=== PATIENT | female | born 1970 | race Caucasian/White ===

== ENCOUNTER 2017-02-05 13:50 | Emergency (ER) | payer BC ==
[2017-02-05 14:07] VITALS: BP 115/65
[2017-02-05] MEDS ORDERED: Ketorolac 30 MG/ML SDV IM ONE (14:15)
[2017-02-05] MEDS ORDERED: Cyclobenzaprine 10 MG Tab PO ONE (14:16)
[2017-02-05] MEDS ORDERED: Acetaminophen/HYDROcodone 325-10 MG Tab PO ONE (14:17)
--- NOTE | 2017-02-05 14:32 | EDM.PDOC ---
Scribed by Una Domingo 02/05/17 1431 for Jerrell Yang MD ED HPI GENERAL MEDICAL PROBLEM - General Chief Complaint: Back Pain or Injury Stated Complaint: [id number] BACK PAIN Time Seen by Provider: 02/05/17 14:26 Source of Information: Reports: Patient, RN Notes Reviewed History Limitations: Reports: No Limitations - History of Present Illness INITIAL COMMENTS - FREE TEXT/NARRATIVE: Complaint of right low back pain onset yesterday when bent over in shower to shave her legs. Patient felt a pulling and indicates sharp pain at the right SI joint region. Shortly after getting out of the shower she developed muscle spasm from the mid-thoracic level to the sacrum and tingling pain radiating down the right leg to the knee. Denies loss of bowel or bladder control, saddle numbness or motor weakness. Location: Reports: Back Quality: Reports: Ache Severity: Severe Improves with: Reports: None Worsens with: Reports: None Associated Symptoms: Reports: No Other Symptoms Middle Back Pain Score (Numeric/FACES): 10 - Related Data Allergies Allergy/AdvReac Type Severity Reaction Status Date / Time No Known Allergies Allergy Verified 04/05/16 15:16 Home Meds: Home Meds Modafinil [Provigil] 300 mg PO DAILY PRN 12/22/15 [History] Nortriptyline 25 mg PO DAILY 02/05/17 [History] Oxybutynin 5 mg PO DAILY 02/05/17 [History] oxyCODONE HCl/Acetaminophen [Percocet 5-325 mg Tablet] 1 tab PO Q6H PRN [History] Past Medical History HEENT History: Reports: None Cardiovascular History: Reports: None Respiratory History: Reports: None Gastrointestinal History: Reports: Other (See Below) Other Gastrointestinal History: liver hemangioma Genitourinary History: Reports: None 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: Musculoskeletal History: Reports: Back Pain, Chronic, Osteoarthritis Other Musculoskeletal History: fibromyalgia Neurological History: Reports: None Psychiatric History: Reports: None Endocrine/Metabolic History: Reports: None Hematologic History: Reports: None Immunologic History: Reports: None Oncologic (Cancer) History: Reports: None Dermatologic History: Reports: None - Past Surgical History GI Surgical History: Reports: Appendectomy, Cholecystectomy, Hernia Repair/Other , Other (See Below) Female Surgical History: Reports: Hysterectomy, Tubal Ligation Social & Family History - Family History Family Medical History: Noncontributory - Tobacco Use Smoking Status *Q: Never Smoker Second Hand Smoke Exposure: Yes - Caffeine Use Caffeine Use: Reports: Coffee - Alcohol Use Days Per Week of Alcohol Use: 0 - Recreational Drug Use Recreational Drug Use: No - Living Situation & Occupation Living situation: Reports: , with Family ED ROS GENERAL - Review of Systems Review Of Systems: ROS reveals no pertinent complaints other than HPI. ED EXAM,LOWER BACK PAIN/INJURY - Physical Exam Exam: See Below Exam Limited By: No Limitations General Appearance: Alert, WD/WN, No Apparent Distress Head: Atraumatic, Normocephalic Neck: Normal Inspection, Supple, Non-Tender, Full Range of Motion Respiratory/Chest: No Respiratory Distress Back Exam: Other (paraspinal muscle spasms and tenderness mid T-spine to sacrum. Tender at right SI joint. ) Neurological: Alert, Normal Mood/Affect, Normal Dorsiflexion, CN II-XII Intact, Normal Plantar Flexion, Normal Gait, Normal Reflexes, No Motor/Sensory Deficits , Oriented x 3 Psychiatric: Normal Affect, Normal Mood Skin Exam: Warm, Dry, Intact, Normal Color, No Rash Course - Vital Signs Last Recorded V/S: Last Vital Signs Temp 36.8 C 02/05/17 14:04 Pulse 60 02/05/17 14:04 Resp 16 02/05/17 14:04 BP 115/65 02/05/17 14:04 Pulse Ox 100 02/05/17 14:04 - Orders/Labs/Meds Meds: Medications Discontinued Medications Generic Name Dose Route Start Last Admin Trade Name lAda PRN Reason Stop Dose Admin Hydrocodone Bitart/Acetaminophen 1 tab 02/05/17 14:17 02/05/17 14:24 [place] 325-10 Mg PO 02/05/17 14:18 1 tab ONETIME ONE Administration Cyclobenzaprine HCl 10 mg 02/05/17 14:16 02/05/17 14:25 Flexeril PO 02/05/17 14:17 10 mg ONETIME ONE Administration Ketorolac Tromethamine 60 mg 02/05/17 14:15 02/05/17 14:26 Toradol IM 02/05/17 14:16 60 mg ONETIME ONE Administration Departure - Departure Time of Disposition: 14:18 Disposition: Home, Self-Care 01 Condition: Good Clinical Impression: Low back strain, Lumbosacral radiculopathy - Discharge Information Instructions: Lumbosacral Strain, Lumbosacral Radiculopathy Forms: ED Department Discharge Additional Instructions: RX: Medrol Dose Pack. RX: Cyclobenzaprine 10mg. * Do not drive or work while under the influence of this medication. May continue to use your home Hydrocodone if needed. Alternate heat and ice packs to low back. Activity as tolerated. Follow up in clinic this week for recheck if needed. I have read and agree with the documentation that has been completed regarding this visit. By signing this record, I attest that the documentation was completed in my physical presence and is an accurate record of the encounter.
== END 2017-02-05 14:38 | disposition home or self-care (01) ==
LOC: DL.ED 13:50
DX: S39.012A Strain of muscle, fascia and tendon of lower back, initial encounter (principal); M54.17 Radiculopathy, lumbosacral region; Z79.899 Other long term (current) drug therapy; Z90.49 Acquired absence of other specified parts of digestive tract; X50.1XXA Overexertion from prolonged static or awkward postures, initial encounter
CPT/HCPCS: 96372; 99282; A9270; J1885

== ENCOUNTER 2017-03-01 11:21 | Emergency (ER) | payer BC ==
[2017-03-01 11:34] VITALS: BP 122/80
--- NOTE | 2017-03-01 11:39 | EDM.PDOC ---
ED HPI GENERAL MEDICAL PROBLEM - General Chief Complaint: Back Pain or Injury Stated Complaint: BACK PAIN. [phone] Time Seen by Provider: 03/01/17 11:37 Source of Information: Reports: Patient, Old Records, RN, RN Notes Reviewed History Limitations: Reports: No Limitations - History of Present Illness INITIAL COMMENTS - FREE TEXT/NARRATIVE: C/O onset of Rt low back pain yesterday when pt got up after sitting on the sofa. Denies any injury. The pain radiates down the Rt leg to the knee. Denies numbness, tingling, loss of bowel or bladder control. Pt reports nausea but denies vomiting. Pt states she had similar Sx's 1 month ago. She has an appointment with her PCP tomorrow, but cannot wait due to the pain. 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 Lower Back Pain Score (Numeric/FACES): 9 - Related Data Allergies Allergy/AdvReac Type Severity Reaction Status Date / Time No Known Allergies Allergy Verified 03/01/17 11:31 Home Meds: Home Meds Nortriptyline 25 mg PO DAILY 02/05/17 [History] Oxybutynin 5 mg PO DAILY 02/05/17 [History] Past Medical History HEENT History: Reports: None Cardiovascular History: Reports: None Respiratory History: Reports: None Gastrointestinal History: Reports: Other (See Below) Other Gastrointestinal History: liver hemangioma Genitourinary History: Reports: None 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: Musculoskeletal History: Reports: Back Pain, Chronic, Osteoarthritis, Other ( See Below) (chronic pain, opiate dependent) Other Musculoskeletal History: fibromyalgia Neurological History: Reports: None Psychiatric History: Reports: None Endocrine/Metabolic History: Reports: None Hematologic History: Reports: None Immunologic History: Reports: None Oncologic (Cancer) History: Reports: None Dermatologic History: Reports: None - Past Surgical History GI Surgical History: Reports: Appendectomy, Cholecystectomy, Hernia Repair/Other , Other (See Below) Female Surgical History: Reports: Hysterectomy, Tubal Ligation Social & Family History - Family History Family Medical History: Noncontributory - Tobacco Use Smoking Status *Q: Never Smoker Second Hand Smoke Exposure: No - Caffeine Use Caffeine Use: Reports: Coffee, Soda - Alcohol Use Days Per Week of Alcohol Use: 0 - Recreational Drug Use Recreational Drug Use: No - Living Situation & Occupation Living situation: Reports: , with Family ED ROS GENERAL - Review of Systems Review Of Systems: ROS reveals no pertinent complaints other than HPI. ED EXAM,LOWER BACK PAIN/INJURY - Physical Exam Exam: See Below Exam Limited By: No Limitations General Appearance: Alert, WD/WN, No Apparent Distress Throat/Mouth: Normal Inspection Head: Atraumatic, Normocephalic Neck: Normal Inspection Respiratory/Chest: No Respiratory Distress, Lungs Clear, Normal Breath Sounds, No Accessory Muscle Use, Chest Non-Tender Cardiovascular: Normal Peripheral Pulses, Regular Rate, Rhythm, No Edema GI/Abdominal: Normal Bowel Sounds, Soft, Non-Tender, No Distention (Female) Exam: Deferred Rectal (Female) Exam: Deferred Back Exam: Muscle Spasm, Paraspinal Tenderness (Rt lumbosacral). No: CVA Tenderness (R), Decreased Range of Motion, Vertebral Tenderness Extremities: Normal Inspection, Normal Range of Motion, Non-Tender, No Pedal Edema, Normal Capillary Refill Neurological: Alert, Normal Mood/Affect, Normal Dorsiflexion, CN II-XII Intact, Normal Plantar Flexion, Normal Gait, No Motor/Sensory Deficits, Oriented x 3 Psychiatric: Normal Affect, Normal Mood Skin Exam: Warm, Dry, Intact, Normal Color, No Rash Course - Vital Signs Last Recorded V/S: Last Vital Signs Temp 36.8 C 03/01/17 11:33 Pulse 70 03/01/17 11:33 Resp 18 03/01/17 11:33 BP 122/80 03/01/17 11:33 Pulse Ox 100 03/01/17 11:33 - Orders/Labs/Meds Labs: Laboratory Tests 03/01/17 03/01/17 03/01/17 Range/Units 11:24 11:24 11:24 Urine Color Yellow (YELLOW) Urine Appearance Slightly cloudy (CLEAR) Urine pH 6.0 (5.0-9.0) Ur Specific [place] 1.020 (1.005-1.030) Urine Protein Negative (NEGATIVE) Urine Glucose (UA) Negative (NEGATIVE) Urine Ketones Negative (NEGATIVE) Urine Occult Blood Trace-intact H (NEGATIVE) Urine Nitrite Negative (NEGATIVE) Urine Bilirubin Negative (NEGATIVE) Urine Urobilinogen 0.2 (0.2-1.0) mg/dL Ur Leukocyte Esterase Small H (NEGATIVE) Urine RBC 0-5 /HPF Urine WBC 5-10 H (0-5/HPF) /HPF Ur Epithelial Cells Many H /HPF Urine Bacteria Moderate H (0-FEW/HPF) /HPF Urine Mucus Few H /LPF Urine Other Urine HCG, Qual Negative Urine Opiates Screen Negative (NEGATIVE) Ur Oxycodone Screen Negative (NEGATIVE) Urine Methadone Screen Negative (NEGATIVE) Ur Barbiturates Screen Negative (NEGATIVE) U Tricyclic Antidepress Negative (NEGATIVE) Ur Phencyclidine Scrn Negative (NEGATIVE) Ur Amphetamine Screen Negative (NEGATIVE) U Methamphetamines Scrn Negative (NEGATIVE) Urine MDMA Screen Negative (NEGATIVE) U Benzodiazepines Scrn Negative (NEGATIVE) Urine Cocaine Screen Negative (NEGATIVE) U Marijuana (THC) Screen Negative (NEGATIVE) Meds: Medications Discontinued Medications Generic Name Dose Route Start Last Admin Trade Name Alda PRN Reason Stop Dose Admin Hydrocodone Bitart/Acetaminophen 1 tab 03/01/17 11:54 03/01/17 12:01 [place] 325-10 Mg PO 03/01/17 11:55 1 tab ONETIME ONE Administration Cyclobenzaprine HCl 10 mg 03/01/17 11:54 03/01/17 12:00 Flexeril PO 03/01/17 11:55 10 mg ONETIME ONE Administration Dexamethasone 8 mg 03/01/17 11:54 03/01/17 12:01 Dexamethasone IM 03/01/17 11:55 8 mg ONETIME ONE Administration Promethazine HCl 25 mg 03/01/17 12:00 03/01/17 12:04 Phenergan PO 03/01/17 12:01 25 mg ONETIME ONE Administration Departure - Departure Time of Disposition: 12:03 Disposition: Home, Self-Care 01 Condition: Good Clinical Impression: Acute exacerbation of chronic low back pain, Bacterial vaginosis Recurrent low back pain Qualifiers: Chronicity: acute Back pain laterality: right Sciatica presence: with sciatica Sciatica laterality: sciatica of right side Qualified Code(s): M54.41 - Lumbago with sciatica, right side - Discharge Information Instructions: Sciatica, Bacterial Vaginosis, [id number] Forms: ED Department Discharge Additional Instructions: Rx: Medrol Dose Matt Rx: Cyclobenzaprine 10mg Rx: Flagyl 500mg Rx: Zofran 4mg Activity as tolerated. Follow up in clinic with your doctor tomorrow as scheduled.
[2017-03-01] MEDS ORDERED: Acetaminophen/HYDROcodone 325-10 MG Tab PO ONE (11:54)
[2017-03-01] MEDS ORDERED: Cyclobenzaprine 10 MG Tab PO ONE (11:54)
[2017-03-01] MEDS ORDERED: Dexamethasone 4 MG/ML SDV IM ONE (11:54)
[2017-03-01] MEDS ORDERED: Promethazine 25 MG Tab PO ONE (12:00)
== END 2017-03-01 12:17 | disposition home or self-care (01) ==
LOC: DL.ED 11:21
DX: M54.41 Lumbago with sciatica, right side (principal); G89.29 Other chronic pain; N76.0 Acute vaginitis; M19.90 Unspecified osteoarthritis, unspecified site; Z79.899 Other long term (current) drug therapy; Z90.49 Acquired absence of other specified parts of digestive tract; Z90.710 Acquired absence of both cervix and uterus; Z98.51 Tubal ligation status; Z98.890 Other specified postprocedural states
CPT/HCPCS: 80305; 81001; 81025; 96372; 99283; A9270; J1100

== ENCOUNTER 2017-12-18 17:12 | Emergency (ER) | payer BC ==
--- NOTE | 2017-12-18 18:40 | EDM.PDOC ---
<Tyler Jackson M - Last Filed: 12/18/17 18:34> ED HPI GENERAL MEDICAL PROBLEM - General Chief Complaint: ENT Problem Stated Complaint: COLD SICK [id number] Time Seen by Provider: 12/18/17 18:25 Source of Information: Reports: Patient History Limitations: Reports: No Limitations - History of Present Illness INITIAL COMMENTS - FREE TEXT/NARRATIVE: This 47 yo female patient reports to the ED due to multiple problems. The patient reports she started to feel ill on Tuesday after spending the night at a hotel. The patient reports she started to have a sore throat, her neck started hurting (left side), she noticed a rash on the left side of her neck. The patient also reports that her Fitbit recorded that her heart rate was 113 on Tuesday. The patient has also had intermittent abdominal pain and aches in her back (kidney area). The patient reports she has a history of fibromyalgia. The patient reports there is a family history of cardiac problems. Onset Date: 12/17/17 Duration: Constant, Getting Worse Location: Reports: Head, Neck, Chest, Abdomen, Back Quality: Reports: Ache, Dull Severity: Moderate Improves with: Reports: None Worsens with: Reports: None Context: Reports: Other Associated Symptoms: Reports: Weakness (generalized) Generalized Pain Score (Numeric/FACES): 8 - Related Data Allergies Allergy/AdvReac Type Severity Reaction Status Date / Time No Known Allergies Allergy Verified 03/06/17 03:10 MDT Home Meds: Home Meds Cyclobenzaprine [Flexeril] 10 mg PO TID 03/06/17 [History] Methylprednisolone [IJD: Methylprednisolone] 4 mg PO BID 03/06/17 [History] Metronidazole [IJD: metroNIDAZOLE] 500 mg PO TID 03/06/17 [History] Ondansetron [Zofran ODT] 4 mg PO Q4H PRN #15 tab.dis 03/06/17 [Rx] Ondansetron [Zofran] 4 mg PO Q6H PRN 03/06/17 [History] Past Medical History HEENT History: Reports: None Cardiovascular History: Reports: None Respiratory History: Reports: None Gastrointestinal History: Reports: Other (See Below) Other Gastrointestinal History: liver hemangioma Genitourinary History: Reports: 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: Musculoskeletal History: Reports: Back Pain, Chronic, Osteoarthritis, Other ( See Below) Other Musculoskeletal History: fibromyalgia Neurological History: Reports: None Other Neuro History: herniated and bulging disc Psychiatric History: Reports: None Endocrine/Metabolic History: Reports: None Hematologic History: Reports: None Immunologic History: Reports: None Oncologic (Cancer) History: Reports: None Dermatologic History: Reports: None - Infectious Disease History Other Infectious Disease History: hepatitis - Past Surgical History GI Surgical History: Reports: Appendectomy, Cholecystectomy, Hernia Repair/Other , Other (See Below) Female Surgical History: Reports: Hysterectomy, Tubal Ligation Social & Family History - Family History Family Medical History: Noncontributory - Tobacco Use Smoking Status *Q: Never Smoker Second Hand Smoke Exposure: No - Caffeine Use Caffeine Use: Reports: Coffee - Recreational Drug Use Recreational Drug Use: No - Living Situation & Occupation Living situation: Reports: , with Family ED ROS GENERAL - Review of Systems Review Of Systems: ROS reveals no pertinent complaints other than HPI. ED EXAM, GENERAL - Physical Exam Exam: See Below Exam Limited By: No Limitations General Appearance: Alert, WD/WN, Moderate Distress Eye Exam: Bilateral Eye: EOMI, Normal Inspection, PERRL Ears: Normal External Exam, Normal Canal, Hearing Grossly Normal, Normal TMs ( TM retractions), Other Nose: Normal Inspection, Normal Mucosa, No Blood Throat/Mouth: Other (Posterior pharynx erythema (no pustules or exudate)) Head: Atraumatic, Normocephalic Neck: Lymphadenopathy (L), Tender Lateral (left) Respiratory/Chest: No Respiratory Distress, Lungs Clear, Normal Breath Sounds, No Accessory Muscle Use, Chest Non-Tender Cardiovascular: Normal Peripheral Pulses, Regular Rate, Rhythm, No Edema, No Gallop, No JVD, No Murmur, No Rub GI/Abdominal: Normal Bowel Sounds, Soft, Non-Tender, No Organomegaly, No Distention, No Abnormal Bruit, No Mass (Female) Exam: Deferred Rectal (Female) Exam: Deferred Back Exam: CVA Tenderness (L), CVA Tenderness (R), Other (generalized tenderness ) Extremities: Normal Inspection, Normal Range of Motion, Non-Tender, Normal Capillary Refill, No Pedal Edema Neurological: Alert, Oriented, CN II-XII Intact Psychiatric: Normal Affect, Normal Mood Skin Exam: Other (erythematous rash to the left side of her neck) Lymphatic: No Adenopathy EKG INTERPRETATION EKG Date: 12/18/17 Time: 18:36 Rhythm: NSR [place]: Normal P-Wave: Present QRS: Normal ST-T: Normal QT: Normal Course - Vital Signs Last Recorded V/S: Last Vital Signs Temp 38.2 C H 12/18/17 17:29 Pulse 82 12/18/17 17:29 Resp 16 12/18/17 17:29 BP 116/62 12/18/17 17:29 Pulse Ox 100 12/18/17 17:29 - Orders/Labs/Meds Orders: Active Orders 24 hr Category Date Time Status EKG Documentation Completion [RC] URGENT Care 12/18/17 18:40 Active CULTURE STREP A CONFIRMATION [] Stat Lab 12/18/17 19:39 Results STREP SCRN A RAPID W CULT CONF [RM] Stat Lab 12/18/17 19:39 Ordered UA W/MICROSCOPIC [URIN] Stat Lab 12/18/17 19:41 Ordered Labs: Laboratory Tests 12/18/17 12/18/17 12/18/17 Range/Units 18:50 18:50 18:50 WBC 13.1 H (5.0-10.0) 10^3/uL RBC 4.47 (4.2-5.4) 10^6/uL Hgb 13.0 (12.0-16.0) g/dL Hct 39.0 (37.0-47.0) % MCV 87.2 (80-100) fL MCH 29.1 (27.0-34.0) pg MCHC 33.3 (33.0-35.0) g/dL Plt Count 180 (150-450) 10^3/uL Neut % (Auto) 67.4 (42.2-75.2) % Lymph % (Auto) 20.6 (20.5-50.1) % [place] % (Auto) 10.0 H (2-8) % Eos % (Auto) 1.8 (1.0-3.0) % Baso % (Auto) 0.2 (0.0-1.0) % D-Dimer, Quantitative (0-400) ng/mL Sodium 136 (135-145) mmol/L Potassium 3.9 (3.6-5.0) mmol/L Chloride 100 L (101-111) mmol/L Carbon Dioxide 30.0 (21.0-31.0) mmol/L Anion Gap 9.9 BUN 15 (7-18) mg/dL Creatinine 1.0 (0.6-1.3) mg/dL Est Cr Clr Drug Dosing 57.53 mL/min Estimated GFR (MDRD) 59 BUN/Creatinine Ratio 15.00 Glucose 96 (74-105) mg/dL Calcium 9.1 (8.4-10.2) mg/dl Total Bilirubin 0.6 (0.2-1.0) mg/dL AST 21 (10-42) IU/L ALT 13 (10-60) IU/L Alkaline Phosphatase 49 (42-121) IU/L Troponin I < 0.02 (0.00-0.02) ng/ml Total Protein 7.4 (6.7-8.2) g/dl Albumin 4.1 (3.2-5.5) g/dl Globulin 3.3 Albumin/Globulin Ratio 1.24 Urine Color (YELLOW) Urine Appearance (CLEAR) Urine pH (5.0-9.0) Ur Specific [place] (1.005-1.030) Urine Protein (NEGATIVE) Urine Glucose (UA) (NEGATIVE) Urine Ketones (NEGATIVE) Urine Occult Blood (NEGATIVE) Urine Nitrite (NEGATIVE) Urine Bilirubin (NEGATIVE) Urine Urobilinogen (0.2-1.0) mg/dL Ur Leukocyte Esterase (NEGATIVE) Urine RBC /HPF Urine WBC (0-5/HPF) /HPF Ur Epithelial Cells /HPF Urine Bacteria (0-FEW/HPF) /HPF Monoscreen Negative 12/18/17 12/18/17 Range/Units 18:50 19:41 WBC (5.0-10.0) 10^3/uL RBC (4.2-5.4) 10^6/uL Hgb (12.0-16.0) g/dL Hct (37.0-47.0) % MCV (80-100) fL MCH (27.0-34.0) pg MCHC (33.0-35.0) g/dL Plt Count (150-450) 10^3/uL Neut % (Auto) (42.2-75.2) % Lymph % (Auto) (20.5-50.1) % [place] % (Auto) (2-8) % Eos % (Auto) (1.0-3.0) % Baso % (Auto) (0.0-1.0) % D-Dimer, Quantitative 113 (0-400) ng/mL Sodium (135-145) mmol/L Potassium (3.6-5.0) mmol/L Chloride (101-111) mmol/L Carbon Dioxide (21.0-31.0) mmol/L Anion Gap BUN (7-18) mg/dL Creatinine (0.6-1.3) mg/dL Est Cr Clr Drug Dosing mL/min Estimated GFR (MDRD) BUN/Creatinine Ratio Glucose (74-105) mg/dL Calcium (8.4-10.2) mg/dl Total Bilirubin (0.2-1.0) mg/dL AST (10-42) IU/L ALT (10-60) IU/L Alkaline Phosphatase (42-121) IU/L Troponin I (0.00-0.02) ng/ml Total Protein (6.7-8.2) g/dl Albumin (3.2-5.5) g/dl Globulin Albumin/Globulin Ratio Urine Color Yellow (YELLOW) Urine Appearance Slightly cloudy (CLEAR) Urine pH 7.0 (5.0-9.0) Ur Specific [place] 1.015 (1.005-1.030) Urine Protein Negative (NEGATIVE) Urine Glucose (UA) Negative (NEGATIVE) Urine Ketones Negative (NEGATIVE) Urine Occult Blood Trace-intact H (NEGATIVE) Urine Nitrite Negative (NEGATIVE) Urine Bilirubin Negative (NEGATIVE) Urine Urobilinogen 0.2 (0.2-1.0) mg/dL Ur Leukocyte Esterase Small H (NEGATIVE) Urine RBC 0-5 /HPF Urine WBC 5-10 H (0-5/HPF) /HPF Ur Epithelial Cells Moderate H /HPF Urine Bacteria Moderate H (0-FEW/HPF) /HPF Monoscreen Departure - Departure Disposition: Home, Self-Care 01 Clinical Impression: Tonsillitis - Discharge Information Instructions: Tonsillitis, [id number] Forms: ED Department Discharge Additional Instructions: 1) rest as much as possible 2) continue tylenol or motrin for fever and body aches 3) drink lots of lqiuids 4) try salt water gargle 5) avoid solid foods and scratchy foods 6) recheck if thee is any change or concern rx given; amoxil 250mg tid x 30 <Rony Burgos - Last Filed: 12/18/17 20:44> Course - Re-Assessments/Exams Free Text/Narrative Re-Assessment/Exam: 12/18/17 20:42 results discussed with pt. Departure - Departure Time of Disposition: 20:42 Condition: Good
[2017-12-18 19:17] LABS: CHLORIDE,CL 100 mmol/L (101-111); SODIUM,NA 136 mmol/L (135-145)
[2017-12-18] MEDS ORDERED: Amoxicillin 500 MG Cap PO ONE (20:41)
[2017-12-18] MEDS ORDERED: Acetaminophen/HYDROcodone 325-10 MG Tab PO ONE (20:41)
[2017-12-18 21:04] VITALS: BP 117/67
--- NOTE | 2017-12-20 07:44 | EKG ---
12/18/2017- RAI CASTILLO - FINDINGS: EKG per my reading, shows sinus rhythm at the rate of 76. [facility] /[id number]
== END 2017-12-18 21:02 | disposition home or self-care (01) ==
LOC: DL.ED 17:12
DX: J03.90 Acute tonsillitis, unspecified (principal); Z79.899 Other long term (current) drug therapy
CPT/HCPCS: 36415; 71046; 80053; 81001; 84484; 85025; 85379; 86308; 87081; 87430; 93005; 99284; A9270

== ENCOUNTER 2018-02-03 10:34 | Emergency (ER) | payer BC ==
--- NOTE | 2018-02-03 11:45 | EDM.PDOC ---
ED HPI GENERAL MEDICAL PROBLEM - General Chief Complaint: Gastrointestinal Problem Stated Complaint: SICK, BOTH ENDS ALL NIGHT Time Seen by Provider: 02/03/18 11:45 Source of Information: Reports: Patient, Old Records, RN, RN Notes Reviewed History Limitations: Reports: No Limitations - History of Present Illness INITIAL COMMENTS - FREE TEXT/NARRATIVE: Pt presents from home by POV with c/o onset of generalized abdominal cramping and diarrhea last night at about 2100HRS. Shortly after the Sx's began pt became nauseated, and began vomiting. She also developed Rt flank pain and suprapubic pain. She denies fevers. Admits to some chills, feeling "dehydrated" , and fatigued. She denies any known sick contacts. Last week she traveled to [place], [place] but has felt well since returning home up until last night. 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) Generalized Pain Score (Numeric/FACES): 10 - Related Data Allergies Allergy/AdvReac Type Severity Reaction Status Date / Time No Known Allergies Allergy Verified 02/03/18 11:23 Home Meds: Home Meds Cyclobenzaprine [Flexeril] 10 mg PO TID 03/06/17 [History] Ondansetron [Zofran] 4 mg PO Q6H PRN 03/06/17 [History] Past Medical History HEENT History: Reports: None Cardiovascular History: Reports: None Respiratory History: Reports: None Gastrointestinal History: Reports: Other (See Below) Other Gastrointestinal History: liver hemangioma Genitourinary History: Reports: None 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: Musculoskeletal History: Reports: Back Pain, Chronic, Osteoarthritis, Other ( See Below) Other Musculoskeletal History: fibromyalgia Neurological History: Reports: None Other Neuro History: herniated and bulging disc Psychiatric History: Reports: None Endocrine/Metabolic History: Reports: None Hematologic History: Reports: None Immunologic History: Reports: None Oncologic (Cancer) History: Reports: None Dermatologic History: Reports: None - Infectious Disease History Infectious Disease History: Reports: Chicken Pox Other Infectious Disease History: hepatitis - Past Surgical History Head Surgeries/Procedures: Reports: None GI Surgical History: Reports: Appendectomy, Cholecystectomy, Hernia Repair/Other , Other (See Below) Female Surgical History: Reports: Hysterectomy, Tubal Ligation Social & Family History - Family History Family Medical History: Noncontributory - Tobacco Use Smoking Status *Q: Never Smoker Second Hand Smoke Exposure: No - Caffeine Use Caffeine Use: Reports: Coffee - Recreational Drug Use Recreational Drug Use: No - Living Situation & Occupation Living situation: Reports: , with Family ED ROS GENERAL - Review of Systems Review Of Systems: ROS reveals no pertinent complaints other than HPI. ED EXAM, GI/ABD - Physical Exam Exam: See Below Exam Limited By: No Limitations General Appearance: Alert, WD/WN, No Apparent Distress, Other (uncomfortable, but non-toxic appearing) Eyes: Bilateral: Normal Appearance (no scleral icterus) Ears: Normal External Exam Nose: Normal Inspection, Normal Mucosa, No Blood Throat/Mouth: Normal Inspection, Normal Lips, Normal Teeth, Normal Gums, Normal Oropharynx, Normal Voice, No Airway Compromise, Other (dry oral membranes) Head: Atraumatic, Normocephalic Neck: Normal Inspection, Supple, Non-Tender, Full Range of Motion Respiratory/Chest: No Respiratory Distress, Lungs Clear, Normal Breath Sounds, No Accessory Muscle Use, Chest Non-Tender Cardiovascular: Regular Rate, Rhythm, No Edema GI/Abdominal Exam: Normal Bowel Sounds, Soft, No Distention, No Abnormal Bruit, Tender (generalized). No: Guarding, Rigid, Rebound (Female) Exam: Deferred Rectal (Female) Exam: Deferred Back Exam: CVA Tenderness (R), Paraspinal Tenderness (lumbar). No: CVA Tenderness (L), Vertebral Tenderness Extremities: Normal Inspection, Normal Range of Motion, Non-Tender, Normal Capillary Refill, No Pedal Edema Neurological: Alert, Oriented, CN II-XII Intact, Normal Cognition, No Motor/ Sensory Deficits Psychiatric: Depressed Mood, Flat Affect Skin Exam: Warm, Dry, Intact, Normal Color, No Rash Course - Orders/Labs/Meds Orders: Active Orders 24 hr Category Date Time Status Blood Glucose Check, Bedside [RC] ONETIME Care 02/03/18 11:51 Active Peripheral IV Care [RC] . DIRECTED Care 02/03/18 11:51 Active AMYLASE [CHEM] Stat Lab 02/03/18 12:01 Received COMPREHENSIVE METABOLIC PN,CMP [CHEM] Stat Lab 02/03/18 12:01 Received LACTIC ACID [CHEM] Stat Lab 02/03/18 12:01 Received LIPASE [CHEM] Stat Lab 02/03/18 12:01 Received UA W/MICROSCOPIC [URIN] Stat Lab 02/03/18 11:50 Ordered Sodium Chloride 0.9% [Saline Flush] Med 02/03/18 11:50 Active 10 ml FLUSH ASDIRECTED PRN Peripheral IV Insertion Adult [OM.PC] Stat Oth 02/03/18 11:50 Ordered Medication Orders Sodium Chloride (Saline Flush) 10 ml FLUSH ASDIRECTED PRN PRN Reason: Keep Vein Open Last Admin: 02/03/18 11:59 Dose: 10 ml Labs: Laboratory Tests 02/03/18 02/03/18 02/03/18 Range/Units 11:50 12:01 12:04 WBC 8.2 (5.0-10.0) 10^3/uL RBC 4.46 (4.2-5.4) 10^6/uL Hgb 13.0 (12.0-16.0) g/dL Hct 39.3 (37.0-47.0) % MCV 88.1 (80-100) fL MCH 29.1 (27.0-34.0) pg MCHC 33.1 (33.0-35.0) g/dL Plt Count 180 (150-450) 10^3/uL Neut % (Auto) 82.8 H (42.2-75.2) % Lymph % (Auto) 8.9 L (20.5-50.1) % [place] % (Auto) 8.1 H (2-8) % Eos % (Auto) 0.1 L (1.0-3.0) % Baso % (Auto) 0.1 (0.0-1.0) % POC Glucose 96 (70-105) mg/dl Urine Color Straw (YELLOW) Urine Appearance Slightly cloudy (CLEAR) Urine pH 6.0 (5.0-9.0) Ur Specific [place] 1.020 (1.005-1.030) Urine Protein Negative (NEGATIVE) Urine Glucose (UA) Negative (NEGATIVE) Urine Ketones Trace H (NEGATIVE) Urine Occult Blood Small H (NEGATIVE) Urine Nitrite Negative (NEGATIVE) Urine Bilirubin Negative (NEGATIVE) Urine Urobilinogen 0.2 (0.2-1.0) mg/dL Ur Leukocyte Esterase Negative (NEGATIVE) Urine RBC 5-10 H /HPF Urine WBC 0-5 (0-5/HPF) /HPF Ur Epithelial Cells Moderate H /HPF Urine Bacteria Moderate H (0-FEW/HPF) /HPF Urine Mucus Few H /LPF Meds: Medications Generic Name Dose Route Start Last Admin Trade Name Freq PRN Reason Stop Dose Admin Sodium Chloride 10 ml 02/03/18 11:50 02/03/18 11:59 Saline Flush FLUSH 10 ml ASDIRECTED PRN Administration Keep Vein Open Discontinued Medications Generic Name Dose Route Start Last Admin Trade Name Freq PRN Reason Stop Dose Admin Hydromorphone HCl 1 mg 02/03/18 11:52 02/03/18 12:08 Dilaudid IVPUSH 02/03/18 11:53 1 mg ONETIME ONE Administration Sodium Chloride 1,000 mls @ 999 mls/hr 02/03/18 11:51 02/03/18 12:06 Normal Saline IV 02/03/18 12:51 999 mls/hr .BOLUS ONE Administration Ondansetron HCl 4 mg 02/03/18 11:51 02/03/18 12:03 Zofran IV 02/03/18 11:52 4 mg ONETIME ONE Administration - Radiology Interpretation Free Text/Narrative:: CT Abd/Pelvis: no acute findings, see Rad. report for incidental and chronic findings. Departure - Departure Time of Disposition: 13:17 Disposition: Home, Self-Care 01 Condition: Good Clinical Impression: Vomiting, Diarrhea, Abdominal pain, Bacterial vaginosis, Acute exacerbation of chronic low back pain - Discharge Information Instructions: Viral Gastroenteritis, Adult, [id number], Bacterial Vaginosis, [id number] Forms: ED Department Discharge Additional Instructions: Rx: Zofran 4mg Rx: Bentyl 20mg Rx: Flagyl 500mg Clear liquid diet until nausea and vomiting resolve, then advance to soft bland diet as tolerated. Follow up in clinic in 4 to 5 days for recheck. - My Orders Last 24 Hours: My Active Orders 02/03/18 11:50 UA W/MICROSCOPIC [URIN] Stat Sodium Chloride 0.9% [Saline Flush] 10 ml FLUSH ASDIRECTED PRN Peripheral IV Insertion Adult [OM.PC] Stat 02/03/18 11:51 Blood Glucose Check, Bedside [RC] ONETIME Peripheral IV Care [RC] . DIRECTED 02/03/18 12:01 AMYLASE [CHEM] Stat COMPREHENSIVE METABOLIC PN,CMP [CHEM] Stat LACTIC ACID [CHEM] Stat LIPASE [CHEM] Stat - Assessment/Plan Last 24 Hours: My Active Orders 02/03/18 11:50 UA W/MICROSCOPIC [URIN] Stat Sodium Chloride 0.9% [Saline Flush] 10 ml FLUSH ASDIRECTED PRN Peripheral IV Insertion Adult [OM.PC] Stat 02/03/18 11:51 Blood Glucose Check, Bedside [RC] ONETIME Peripheral IV Care [RC] . DIRECTED 02/03/18 12:01 AMYLASE [CHEM] Stat COMPREHENSIVE METABOLIC PN,CMP [CHEM] Stat LACTIC ACID [CHEM] Stat LIPASE [CHEM] Stat
[2018-02-03] MEDS ORDERED: Sodium Chloride 0.9% 10 ML Syringe FLUSH PRN (11:50)
[2018-02-03] MEDS ORDERED: Ondansetron 4 MG/2 ML SDV IV ONE (11:51)
[2018-02-03] MEDS ORDERED: Sodium Chloride 0.9% 1,000 ML IV ONE (11:51)
[2018-02-03] MEDS ORDERED: HYDROmorphone 0.5 MG/0.5 ML Syringe IVPUSH ONE (11:52)
--- NOTE | 2018-02-03 13:11 | CT ---
Clinical history: 47-year-old 170 pound female with fever, chills, right flank pain and some hematuri a who significantly is had previous partial hepatectomy for hemangioma liver, cholecystectomy, append ectomy and hysterectomy. Scan technique: Volume acquisition of data emergency unenhanced CT scan of the abdomen and pelvis obt ained while the patient was lying supine on the Siemens multi slice scanner [place], [place]. All data archived in the PACS system for storage, reformatting axial/sagittal /coronal planes and study. Interpretation: 1. Large defect right lobe of the liver with marginal and adjacent surgical clips (partial hepatectom y and cholecystectomy). 2. Unenhanced liver, stomach, spleen, and left adrenal gland unremarkable (right adrenal not identifi ed). 3. No sign of renal cortical inflammation, cystic/solid mass lesion, nephrolithiasis or obstructive u ropathy either kidney. Normal bladder. Isolated punctate phlebolith-like calcification left side of t he pelvis. 4. A few small diverticula scattered in the sigmoid colon without current signs of associated inflamm ation. 5. No abdominal or pelvic mass lesion, inflammatory "dirty" peritoneal fat, mesenteric/retroperitonea l lymphadenopathy, signs of mechanical bowel obstruction, ascites or free intraperitoneal air. 6. Normal caliber aorta. Lumbar spine unremarkable. Lung bases clear. CONCLUSION: Multiple surgeries. No sign of acute intra or retroperitoneal abnormality. Sigmoid divert iculosis.
[2018-02-03 13:32] LABS: SODIUM,NA 136 mmol/L (135-145)
== END 2018-02-03 13:32 | disposition home or self-care (01) ==
LOC: DL.ED 10:34
DX: N76.0 Acute vaginitis (principal); M54.5 Low back pain; G89.29 Other chronic pain; Z79.899 Other long term (current) drug therapy
CPT/HCPCS: 36415; 74176; 80053; 81001; 82150; 82962; 83605; 83690; 85025; 96361; 96374; 96375; 99284; J1170; J2405; J7030; J7050

== ENCOUNTER 2018-10-08 14:39 | Emergency (ER) | payer BC ==
[2018-10-08 14:45] VITALS: BP 105/64
[2018-10-08] MEDS ORDERED: Sodium Chloride 0.9% 1,000 ML IV ONE (15:22)
[2018-10-08] MEDS ORDERED: Ketorolac 30 MG/ML SDV IVPUSH ONE (15:22)
--- NOTE | 2018-10-08 15:25 | EDM.PDOC ---
ED HPI GENERAL MEDICAL PROBLEM - General Chief Complaint: General Stated Complaint: SICK [id number] Time Seen by Provider: 10/08/18 15:23 Source of Information: Reports: Patient History Limitations: Reports: No Limitations - History of Present Illness INITIAL COMMENTS - FREE TEXT/NARRATIVE: onset left back pain yesterday then been going down to lower back and now lower abd hurts. had hysterectomy. 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: Musculoskeletal History: Reports: Back Pain, Chronic, Osteoarthritis, Other ( See Below) Other Musculoskeletal History: fibromyalgia Neurological History: Reports: None Other Neuro History: herniated and bulging disc Psychiatric History: Reports: None Endocrine/Metabolic History: Reports: None Hematologic History: Reports: None Immunologic History: Reports: None Oncologic (Cancer) History: Reports: None Dermatologic History: Reports: None - Infectious Disease History Infectious Disease History: Reports: Chicken Pox Other Infectious Disease History: hepatitis - Past Surgical History Head Surgeries/Procedures: Reports: None GI Surgical History: Reports: Appendectomy, Cholecystectomy, Hernia Repair/Other , Other (See Below) Female Surgical History: Reports: Hysterectomy, Tubal Ligation Social & Family History - Family History Family Medical History: Noncontributory - Tobacco Use Smoking Status *Q: Never Smoker Second Hand Smoke Exposure: No - Caffeine Use Caffeine Use: Reports: Coffee - Recreational Drug Use Recreational Drug Use: No - Living Situation & Occupation Living situation: Reports: , with Family ED ROS GENERAL - Review of Systems Review Of Systems: ROS reveals no pertinent complaints other than HPI. ED EXAM, GENERAL - Physical Exam Exam: See Below Exam Limited By: No Limitations General Appearance: Alert, WD/WN, Mild Distress, Other (general discomfort) Ears: Hearing Grossly Normal Throat/Mouth: Normal Voice, No Airway Compromise Head: Atraumatic Neck: Non-Tender, Full Range of Motion Respiratory/Chest: No Respiratory Distress Cardiovascular: Regular Rate, Rhythm GI/Abdominal: Tender, Other (suprapub & epiG region). No: Distended, Guarding, Rigid, Rebound Back Exam: CVA Tenderness (L) Neurological: Alert, Oriented, Normal Cognition, Normal Gait, No Motor/Sensory Deficits Psychiatric: Flat Affect, Tearful Skin Exam: Warm, Dry, Normal Color Lymphatic: No Adenopathy Course - Vital Signs Last Recorded V/S: Last Vital Signs Temp 36.4 C 10/08/18 14:42 Pulse 82 10/08/18 14:42 Resp 18 10/08/18 14:42 BP 105/64 10/08/18 14:42 Pulse Ox 100 10/08/18 14:42 - Orders/Labs/Meds Orders: Active Orders 24 hr Category Date Time Status Abdomen Pelvis wo Cont [CT] Urgent Exams 10/08/18 15:25 Taken CULTURE STREP A CONFIRMATION [] Stat Lab 10/08/18 14:52 Results STREP SCRN A RAPID W CULT CONF [] Stat Lab 10/08/18 14:52 Results Labs: Laboratory Tests 10/08/18 10/08/18 10/08/18 Range/Units 14:52 15:34 15:34 WBC 12.6 H (5.0-10.0) 10^3/uL RBC 4.93 (4.2-5.4) 10^6/uL Hgb 14.4 (12.0-16.0) g/dL Hct 43.1 (37.0-47.0) % MCV 87.4 (80-100) fL MCH 29.2 (27.0-34.0) pg MCHC 33.4 (33.0-35.0) g/dL Plt Count 184 (150-450) 10^3/uL Neut % (Auto) 71.6 (42.2-75.2) % Lymph % (Auto) 18.6 L (20.5-50.1) % [place] % (Auto) 9.0 H (2-8) % Eos % (Auto) 0.7 L (1.0-3.0) % Baso % (Auto) 0.1 (0.0-1.0) % Sodium 136 (135-145) mmol/L Potassium 3.4 L (3.6-5.0) mmol/L Chloride 102 (101-111) mmol/L Carbon Dioxide 23.0 (21.0-31.0) mmol/L Anion Gap 14.4 BUN 18 (7-18) mg/dL Creatinine 1.1 (0.6-1.3) mg/dL Est Cr Clr Drug Dosing 54.01 mL/min Estimated GFR (MDRD) 53 BUN/Creatinine Ratio 16.36 Glucose 95 (74-105) mg/dL Calcium 9.0 (8.4-10.2) mg/dl Total Bilirubin 1.2 H (0.2-1.0) mg/dL AST 20 (10-42) IU/L ALT 13 (10-60) IU/L Alkaline Phosphatase 54 (42-121) IU/L Total Protein 7.7 (6.7-8.2) g/dl Albumin 4.1 (3.2-5.5) g/dl Globulin 3.6 Albumin/Globulin Ratio 1.14 Urine Color Dark yellow (YELLOW) Urine Appearance Slightly cloudy (CLEAR) Urine pH 5.5 (5.0-9.0) Ur Specific [place] >= 1.030 (1.005-1.030) Urine Protein 30 H (NEGATIVE) Urine Glucose (UA) Negative (NEGATIVE) Urine Ketones Trace H (NEGATIVE) Urine Occult Blood Moderate H (NEGATIVE) Urine Nitrite Negative (NEGATIVE) Urine Bilirubin Small H (NEGATIVE) Urine Urobilinogen 0.2 (0.2-1.0) mg/dL Ur Leukocyte Esterase Negative (NEGATIVE) Urine RBC 20-30 H /HPF Urine WBC 0-5 (0-5/HPF) /HPF Ur Epithelial Cells Few /HPF Amorphous Sediment Few (0/HPF) /HPF Urine Bacteria Few (0-FEW/HPF) /HPF Fine Granular Casts Rare H (0/LPF) /LPF Urine Mucus Moderate H /LPF Meds: Medications Discontinued Medications Generic Name Dose Route Start Last Admin Trade Name Freq PRN Reason Stop Dose Admin Sodium Chloride 1,000 mls @ 999 mls/hr 10/08/18 15:22 10/08/18 15:36 Normal Saline IV 10/08/18 16:22 999 mls/hr .BOLUS ONE Administration Ketorolac Tromethamine 15 mg 10/08/18 15:22 03/10/19 15:36 Toradol IVPUSH 10/08/18 15:23 15 mg ONETIME ONE Administration - Re-Assessments/Exams Free Text/Narrative Re-Assessment/Exam: 10/08/18 16:51 results discussed with pt. still uncomfortable. Departure - Departure Time of Disposition: 16:52 Disposition: Home, Self-Care 01 Condition: Fair Clinical Impression: Flank pain Hematuria Qualifiers: Hematuria type: unspecified type Qualified Code(s): R31.9 - Hematuria, unspecified - Discharge Information Instructions: Flank Pain, Adult, [id number] Forms: ED Department Discharge Additional Instructions: 1) see clinic tomorrow for UROLOGY REFERRAL for haematuria 2) recheck as needed - My Orders Last 24 Hours: My Active Orders 10/08/18 14:52 CULTURE STREP A CONFIRMATION [RM] Stat STREP SCRN A RAPID W CULT CONF [RM] Stat 10/08/18 15:25 Abdomen Pelvis wo Cont [CT] Urgent - Assessment/Plan Last 24 Hours: My Active Orders 10/08/18 14:52 CULTURE STREP A CONFIRMATION [RM] Stat STREP SCRN A RAPID W CULT CONF [RM] Stat 10/08/18 15:25 Abdomen Pelvis wo Cont [CT] Urgent
[2018-10-08 16:02] LABS: ANION GAP 14.4
[2018-10-08] MEDS ORDERED: Acetaminophen/HYDROcodone 325-5 MG Tab PO ONE (16:56)
== END 2018-10-08 17:07 | disposition home or self-care (01) ==
LOC: DL.ED 14:39
DX: R31.9 Hematuria, unspecified (principal); Z79.899 Other long term (current) drug therapy
CPT/HCPCS: 36415; 74176; 80053; 81001; 85025; 87081; 87430; 87804; 96361; 96374; 99284; A9270; J1885; J7030

== ENCOUNTER 2018-11-29 20:45 | Emergency (ER) | payer BC ==
[2018-11-29 20:52] VITALS: BP 123/76
--- NOTE | 2018-11-29 21:14 | EDM.PDOC ---
ED HPI GENERAL MEDICAL PROBLEM - General Chief Complaint: Chest Pain Stated Complaint: NOT FEELING RIGHT, LIGHT HEADED Time Seen by Provider: 11/29/18 21:13 Source of Information: Reports: Patient, RN, RN Notes Reviewed History Limitations: Reports: No Limitations - History of Present Illness INITIAL COMMENTS - FREE TEXT/NARRATIVE: Pt to ER with c/o sudden onset dizziness, headache, chest pain. Pt states she does not feel like herself. She states on 11/16 she had a bladder sling done. Was placed on antibiotics on Tuesday for possible UTI. Patient states she has had problems with anxiety in the past. She states her fathers side of the family has a lot of heart problems and this makes her uneasy. Patient denies recent fever or chills, N/V/D. Onset: Today, Sudden Left Chest Pain Score (Numeric/FACES): 4 - Related Data Allergies Allergy/AdvReac Type Severity Reaction Status Date / Time No Known Allergies Allergy Verified 11/29/18 20:52 Home Meds: Home Meds Cyclobenzaprine [Flexeril] 10 mg PO TID 03/06/17 [History] Ondansetron [Zofran] 4 mg PO Q6H PRN 03/06/17 [History] Cephalexin [Keflex] 500 mg PO TID 11/29/18 [History] Past Medical History HEENT History: Reports: None Cardiovascular History: Reports: None Respiratory History: Reports: None Gastrointestinal History: Reports: Other (See Below) Other Gastrointestinal History: liver hemangioma Genitourinary History: Reports: None 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: Musculoskeletal History: Reports: Back Pain, Chronic, Osteoarthritis, Other ( See Below) Other Musculoskeletal History: fibromyalgia Neurological History: Reports: None Other Neuro History: herniated and bulging disc Psychiatric History: Reports: None Endocrine/Metabolic History: Reports: None Hematologic History: Reports: None Immunologic History: Reports: None Oncologic (Cancer) History: Reports: None Dermatologic History: Reports: None - Infectious Disease History Infectious Disease History: Reports: Chicken Pox Other Infectious Disease History: hepatitis - Past Surgical History Head Surgeries/Procedures: Reports: None GI Surgical History: Reports: Appendectomy, Cholecystectomy, Hernia Repair/Other , Other (See Below) Female Surgical History: Reports: Hysterectomy, Tubal Ligation, Other (See Below) Other Female Surgeries/Procedures: bladder sling Social & Family History - Family History Family Medical History: Noncontributory - Tobacco Use Smoking Status *Q: Never Smoker Second Hand Smoke Exposure: No - Caffeine Use Caffeine Use: Reports: Coffee - Recreational Drug Use Recreational Drug Use: No - Living Situation & Occupation Living situation: Reports: , with Family ED ROS GENERAL - Review of Systems Review Of Systems: ROS reveals no pertinent complaints other than HPI. ED EXAM, GENERAL - Physical Exam Exam: See Below Exam Limited By: No Limitations General Appearance: Alert, WD/WN, Moderate Distress Eye Exam: Bilateral Eye: EOMI, Normal Inspection Ears: Normal External Exam, Hearing Grossly Normal Nose: Normal Inspection Throat/Mouth: Normal Inspection, Normal Voice, No Airway Compromise Head: Atraumatic, Normocephalic Neck: Normal Inspection, Supple, Limited Range of Motion, Tender Lateral, Other (Can put chin to chest with some discomfort) Respiratory/Chest: No Respiratory Distress, Lungs Clear, Normal Breath Sounds, No Accessory Muscle Use, Chest Non-Tender Cardiovascular: Normal Peripheral Pulses, Regular Rate, Rhythm, No Edema, No Gallop, No JVD, No Murmur, No Rub Peripheral Pulses: 2+: Radial (L), Radial (R) GI/Abdominal: Normal Bowel Sounds, Soft, Non-Tender, No Organomegaly, No Distention, No Abnormal Bruit, No Mass (Female) Exam: Deferred Rectal (Female) Exam: Deferred Back Exam: Normal Inspection, Full Range of Motion, NT Extremities: Normal Inspection, Normal Range of Motion, Non-Tender, Normal Capillary Refill, No Pedal Edema Neurological: Alert, Oriented, CN II-XII Intact, Normal Cognition, Normal Gait, Normal Reflexes, No Motor/Sensory Deficits Psychiatric: Normal Mood, Anxious Skin Exam: Warm, Dry, Intact, Normal Color, No Rash Lymphatic: No Adenopathy Course - Vital Signs Last Recorded V/S: Last Vital Signs Temp 98.9 F 11/29/18 20:49 Pulse 75 11/29/18 20:49 Resp 18 11/29/18 20:49 BP 123/76 11/29/18 20:49 Pulse Ox 100 11/29/18 20:49 - Orders/Labs/Meds Orders: Active Orders 24 hr Category Date Time Status EKG 12 Lead [EKG Documentation Completion] [RC] STAT Care 11/29/18 21:03 Active EKG Documentation Completion [RC] STAT Care 11/30/18 01:00 Active CULTURE URINE [RM] Stat Lab 11/29/18 21:06 Received Labs: Laboratory Tests 11/29/18 11/29/18 11/29/18 Range/Units 21:00 21:00 21:00 WBC 11.0 H (5.0-10.0) 10^3/uL RBC 4.59 (4.2-5.4) 10^6/uL Hgb 13.6 (12.0-16.0) g/dL Hct 39.9 (37.0-47.0) % MCV 86.9 (80-100) fL MCH 29.6 (27.0-34.0) pg MCHC 34.1 (33.0-35.0) g/dL Plt Count 231 (150-450) 10^3/uL Neut % (Auto) 53.4 (42.2-75.2) % Lymph % (Auto) 34.5 (20.5-50.1) % [place] % (Auto) 8.5 H (2-8) % Eos % (Auto) 3.3 H (1.0-3.0) % Baso % (Auto) 0.3 (0.0-1.0) % Sodium 136 (135-145) mmol/L Potassium 3.3 L (3.6-5.0) mmol/L Chloride 99 L (101-111) mmol/L Carbon Dioxide 27.0 (21.0-31.0) mmol/L Anion Gap 13.3 BUN 12 (7-18) mg/dL Creatinine 0.9 (0.6-1.3) mg/dL Est Cr Clr Drug Dosing 63.24 mL/min Estimated GFR (MDRD) > 60 BUN/Creatinine Ratio 13.33 Glucose 110 H (74-105) mg/dL Calcium 9.1 (8.4-10.2) mg/dl Total Bilirubin 0.6 (0.2-1.0) mg/dL AST 17 (10-42) IU/L ALT 10 (10-60) IU/L Alkaline Phosphatase 45 (42-121) IU/L Troponin I < 0.02 (0.00-0.02) ng/ml Total Protein 7.3 (6.7-8.2) g/dl Albumin 4.0 (3.2-5.5) g/dl Globulin 3.3 Albumin/Globulin Ratio 1.21 Urine Color (YELLOW) Urine Appearance (CLEAR) Urine pH (5.0-9.0) Ur Specific [place] (1.005-1.030) Urine Protein (NEGATIVE) Urine Glucose (UA) (NEGATIVE) Urine Ketones (NEGATIVE) Urine Occult Blood (NEGATIVE) Urine Nitrite (NEGATIVE) Urine Bilirubin (NEGATIVE) Urine Urobilinogen (0.2-1.0) mg/dL Ur Leukocyte Esterase (NEGATIVE) Urine RBC /HPF Urine WBC (0-5/HPF) /HPF Ur Epithelial Cells /HPF Urine Bacteria (0-FEW/HPF) /HPF Urinalysis Comment Urine Opiates Screen (NEGATIVE) Ur Oxycodone Screen (NEGATIVE) Urine Methadone Screen (NEGATIVE) Ur Barbiturates Screen (NEGATIVE) U Tricyclic Antidepress (NEGATIVE) Ur Phencyclidine Scrn (NEGATIVE) Ur Amphetamine Screen (NEGATIVE) U Methamphetamines Scrn (NEGATIVE) Urine MDMA Screen (NEGATIVE) U Benzodiazepines Scrn (NEGATIVE) Urine Cocaine Screen (NEGATIVE) U Marijuana (THC) Screen (NEGATIVE) Ethyl Alcohol < 5 mg/dL 11/29/18 11/29/18 11/30/18 Range/Units 21:06 21:06 01:04 WBC (5.0-10.0) 10^3/uL RBC (4.2-5.4) 10^6/uL Hgb (12.0-16.0) g/dL Hct (37.0-47.0) % MCV (80-100) fL MCH (27.0-34.0) pg MCHC (33.0-35.0) g/dL Plt Count (150-450) 10^3/uL Neut % (Auto) (42.2-75.2) % Lymph % (Auto) (20.5-50.1) % [place] % (Auto) (2-8) % Eos % (Auto) (1.0-3.0) % Baso % (Auto) (0.0-1.0) % Sodium (135-145) mmol/L Potassium (3.6-5.0) mmol/L Chloride (101-111) mmol/L Carbon Dioxide (21.0-31.0) mmol/L Anion Gap BUN (7-18) mg/dL Creatinine (0.6-1.3) mg/dL Est Cr Clr Drug Dosing mL/min Estimated GFR (MDRD) BUN/Creatinine Ratio Glucose (74-105) mg/dL Calcium (8.4-10.2) mg/dl Total Bilirubin (0.2-1.0) mg/dL AST (10-42) IU/L ALT (10-60) IU/L Alkaline Phosphatase (42-121) IU/L Troponin I < 0.02 (0.00-0.02) ng/ml Total Protein (6.7-8.2) g/dl Albumin (3.2-5.5) g/dl Globulin Albumin/Globulin Ratio Urine Color Yellow (YELLOW) Urine Appearance Slightly cloudy (CLEAR) Urine pH 6.0 (5.0-9.0) Ur Specific [place] <= 1.005 (1.005-1.030) Urine Protein Negative (NEGATIVE) Urine Glucose (UA) Negative (NEGATIVE) Urine Ketones Negative (NEGATIVE) Urine Occult Blood Trace-intact H (NEGATIVE) Urine Nitrite Negative (NEGATIVE) Urine Bilirubin Negative (NEGATIVE) Urine Urobilinogen 0.2 (0.2-1.0) mg/dL Ur Leukocyte Esterase Small H (NEGATIVE) Urine RBC 0-5 /HPF Urine WBC 0-5 (0-5/HPF) /HPF Ur Epithelial Cells Moderate H /HPF Urine Bacteria Moderate H (0-FEW/HPF) /HPF Urinalysis Comment Urine Opiates Screen Negative (NEGATIVE) Ur Oxycodone Screen Negative (NEGATIVE) Urine Methadone Screen Negative (NEGATIVE) Ur Barbiturates Screen Negative (NEGATIVE) U Tricyclic Antidepress Negative (NEGATIVE) Ur Phencyclidine Scrn Negative (NEGATIVE) Ur Amphetamine Screen Negative (NEGATIVE) U Methamphetamines Scrn Negative (NEGATIVE) Urine MDMA Screen Negative (NEGATIVE) U Benzodiazepines Scrn Negative (NEGATIVE) Urine Cocaine Screen Negative (NEGATIVE) U Marijuana (THC) Screen Negative (NEGATIVE) Ethyl Alcohol mg/dL Meds: Medications Discontinued Medications Generic Name Dose Route Start Last Admin Trade Name Freq PRN Reason Stop Dose Admin Sodium Chloride 1,000 mls @ 999 mls/hr 11/29/18 21:59 11/29/18 22:02 Normal Saline IV 11/29/18 22:59 999 mls/hr .BOLUS ONE Administration Ketorolac Tromethamine 30 mg 11/29/18 23:52 11/30/18 00:13 Toradol IVPUSH 11/29/18 23:53 30 mg ONETIME ONE Administration Lorazepam 0.5 mg 11/29/18 22:12 11/29/18 23:13 Ativan IVPUSH 11/29/18 22:13 0.5 mg ONETIME ONE Administration - Radiology Interpretation Free Text/Narrative:: Chest xray: FINDINGS: Lungs: Unremarkable. No consolidation. Pleural space: Unremarkable. No evidence of pneumothorax. Heart/Mediastinum: Unremarkable. Heart size within normal limits for technique. Bones/joints: Unremarkable. IMPRESSION: No acute findings. Thank you for allowing us to participate in the care of your patient. Dictated and Authenticated by: Andrés Arreola MD 11/29/2018 9:32 PM Central Time ([place] & [place]) Head CT: FINDINGS: Brain: Typical for age. No hemorrhage. No evidence of acute infarct. No mass. Ventricles: No ventriculomegaly. Bones/joints: Unremarkable. Sinuses: No sinus fluid. Mastoid air cells: Unremarkable. Soft tissues: Unremarkable. IMPRESSION: No acute intracranial abnormality. Thank you for allowing us to participate in the care of your patient. Dictated and Authenticated by: Andrés Arreola MD 11/29/2018 9:55 PM Central Time ([place] & [place]) See rad report - Re-Assessments/Exams Free Text/Narrative Re-Assessment/Exam: 11/30/18 01:46 Patient states she is feeling somewhat better. She states she does not feel like her body is quivering. Patient states improvement with the headache and neck pain, although still present. Labs and xray/CT discussed with the patient. Patient states understanding. Departure - Departure Time of Disposition: 01:36 Disposition: Home, Self-Care 01 Condition: Fair Clinical Impression: Dizziness, Nonspecific chest pain Headache Qualifiers: Headache type: unspecified Headache chronicity pattern: acute headache Intractability: not intractable Qualified Code(s): R51 - Headache Instructions: Chest Wall Pain, [id number], Nonspecific Chest Pain, Easy-to- Read, General Headache Without Cause, [id number], Dizziness, [id number] Forms: ED Department Discharge Additional Instructions: Drink plenty of water Continue taking Cephalexin as prescribed Return to the ER with any worsening symptoms Follow up with your primary care facility - My Orders Last 24 Hours: My Active Orders 11/29/18 21:03 EKG 12 Lead [EKG Documentation Completion] [RC] STAT 11/29/18 21:06 CULTURE URINE [RM] Stat 11/30/18 01:00 EKG Documentation Completion [RC] STAT - Assessment/Plan Last 24 Hours: My Active Orders 11/29/18 21:03 EKG 12 Lead [EKG Documentation Completion] [RC] STAT 11/29/18 21:06 CULTURE URINE [RM] Stat 11/30/18 01:00 EKG Documentation Completion [RC] STAT
[2018-11-29 21:25] LABS: ANION GAP 13.3; CHLORIDE,CL 99 mmol/L (101-111); SODIUM,NA 136 mmol/L (135-145)
[2018-11-29] MEDS: Sodium Chloride 0.9% 1,000 ML IV ONE (22:02)
[2018-11-29] MEDS: LORazepam 2 MG/ML Syringe IVPUSH ONE (23:13)
[2018-11-30] MEDS: Ketorolac 30 MG/ML SDV IVPUSH ONE (00:13)
== END 2018-11-30 01:52 | disposition home or self-care (01) ==
LOC: DL.ED 20:45
DX: R07.9 Chest pain, unspecified (principal); R51 Headache; Z79.899 Other long term (current) drug therapy
CPT/HCPCS: 36415; 70450; 71045; 80053; 80305-QW; 81001; 84484; 85025; 87086; 93005; 96361; 96374; 96375; 99285-25; G0480; J1885; J2060; J7030

== ENCOUNTER 2019-06-12 19:14 | Emergency (ER) | payer BC ==
[2019-06-12 19:29] VITALS: BP 114/76; PULSE 78
--- NOTE | 2019-06-12 21:52 | EDM.PDOC ---
ED HPI GENERAL MEDICAL PROBLEM - General Chief Complaint: Skin Complaint Stated Complaint: ITCHY X 1 MONTH Time Seen by Provider: 06/12/19 21:35 Source of Information: Reports: Patient History Limitations: Reports: No Limitations - History of Present Illness INITIAL COMMENTS - FREE TEXT/NARRATIVE: This 49 yo female patient reports to the ED with a rash on her neck, upper chest and arms. The patient reports the rash started about 1 month ago after having her thyroid medications increased. The patient reports she has also been feeling very tired lately and has been getting sick frequently. 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 The patient reports she has used some Benadryl Cream, but has not had any symptom improvement. Onset: Other Duration: Week(s):, Constant Location: Reports: Neck, Chest, Upper Extremity, Left, Upper Extremity, Right Quality: Reports: Other Severity: Moderate Improves with: Reports: None Worsens with: Reports: None Context: Reports: Other Associated Symptoms: Reports: No Other Symptoms Neck Pain Score (Numeric/FACES): 4 - Related Data Allergies Allergy/AdvReac Type Severity Reaction Status Date / Time No Known Allergies Allergy Verified 06/12/19 19:25 Home Meds: Home Meds Ondansetron [Zofran] 4 mg PO Q8HR PRN 03/06/17 [History] Acetaminophen [Tylenol] 650 mg PO Q6HR PRN 12/12/18 [History] hydroCHLOROthiazide [Hydrochlorothiazide] 25 mg PO DAILY 12/12/18 [History] Past Medical History HEENT History: Reports: None Cardiovascular History: Reports: None Respiratory History: Reports: None Gastrointestinal History: Reports: Other (See Below) Other Gastrointestinal History: liver hemangioma Genitourinary History: Reports: None 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: Musculoskeletal History: Reports: Back Pain, Chronic, Osteoarthritis, Other ( See Below) Other Musculoskeletal History: fibromyalgia Neurological History: Reports: None Other Neuro History: herniated and bulging disc Psychiatric History: Reports: None Endocrine/Metabolic History: Reports: None Hematologic History: Reports: None Immunologic History: Reports: None Oncologic (Cancer) History: Reports: None Dermatologic History: Reports: None - Infectious Disease History Infectious Disease History: Reports: Chicken Pox Other Infectious Disease History: hepatitis - Past Surgical History Head Surgeries/Procedures: Reports: None GI Surgical History: Reports: Appendectomy, Cholecystectomy, Hernia Repair/Other , Other (See Below) Female Surgical History: Reports: Hysterectomy, Tubal Ligation, Other (See Below) Other Female Surgeries/Procedures: bladder sling Social & Family History - Family History Family Medical History: Noncontributory - Tobacco Use Smoking Status *Q: Never Smoker - Caffeine Use Caffeine Use: Reports: Coffee - Recreational Drug Use Recreational Drug Use: No - Living Situation & Occupation Living situation: Reports: , with Family ED ROS GENERAL - Review of Systems Review Of Systems: Comprehensive ROS is negative, except as noted in HPI. ED EXAM, SKIN/RASH Exam: See Below Exam Limited By: No Limitations General Appearance: Alert, WD/WN, Mild Distress Eye Exam: Bilateral Eye: EOMI, Normal Inspection, PERRL Ears: Normal External Exam, Normal Canal, Hearing Grossly Normal, Normal TMs Nose: Normal Inspection, Normal Mucosa, No Blood Throat/Mouth: Normal Inspection, Normal Lips, Normal Teeth, Normal Gums, Normal Oropharynx, Normal Voice, No Airway Compromise Head: Atraumatic, Normocephalic Neck: Normal Inspection, Supple, Non-Tender, Full Range of Motion Respiratory/Chest: No Respiratory Distress (Female) Exam: Deferred Rectal (Female) Exam: Deferred Extremities: Normal Inspection, Normal Range of Motion, Non-Tender, No Pedal Edema, Normal Capillary Refill Neurological: Alert, Oriented Psychiatric: Flat Affect Skin: Excoriations (neck, upper chest and bilateral wrists), Rash Location, Skin: Neck, Chest (upper), Upper Extremity, Right, Upper Extremity, Left Characteristics: Erythematous Associated features: Inflammation, Rough. No: Induration, Scaling, Crusting, Weeping Lymphatic: No Adenopathy Course - Vital Signs Last Recorded V/S: Last Vital Signs Temp 36.8 C 06/12/19 19:26 Pulse 78 06/12/19 19:26 Resp 16 06/12/19 19:26 BP 114/76 06/12/19 19:26 Pulse Ox 99 06/12/19 19:26 Departure - Departure Time of Disposition: 21:50 Disposition: Home, Self-Care 01 Condition: Fair Clinical Impression: Skin rash - Discharge Information *PRESCRIPTION DRUG MONITORING PROGRAM REVIEWED*: Not Applicable *COPY OF PRESCRIPTION DRUG MONITORING REPORT IN PATIENT DIANA: Not Applicable Forms: ED Department Discharge Care Plan Goals: The patient was advised to take an oral dose of Benadryl at bedtime. The patient should call her corrosion control specialist or primary care facility in the morning for further lab work to evaluate her thyroid levels completely. If the patient has any additional symptoms or concerns, the patient should either return to the emergency department or visit her primary care facility.
== END 2019-06-12 21:55 | disposition home or self-care (01) ==
LOC: DL.ED 19:14
DX: R21 Rash and other nonspecific skin eruption (principal)
CPT/HCPCS: 99282

== ENCOUNTER 2021-08-06 15:59 | Emergency (ER) | payer BC, MEDICAID ==
[2021-08-06 17:31] VITALS: BP 112/97; PULSE 57
--- NOTE | 2021-08-06 17:43 | EDM.PDOC ---
ED HPI GENERAL MEDICAL PROBLEM - General Chief Complaint: Lower Extremity Injury/Pain Stated Complaint: BACK PAINAND HIP PAIN, LEFT ARM PAIN Time Seen by Provider: 08/06/21 17:37 Source of Information: Reports: Patient History Limitations: Reports: No Limitations - History of Present Illness INITIAL COMMENTS - FREE TEXT/NARRATIVE: 51 y/o F c/o Sciatic pain for 2 weeks. Pain is constant worse with sitting has increased in severity over the last few days. Pt could not get into clinic to see her provider. Pt also developed L arm ain last night which has continued throughout the day. The pain is constant through the whole arm and does not change with palpation or movement. Father has hx of several MIs beginning in his sixties. Pt does not smoke or drink etoh. Hx of fibromyalgia. Denies fever, cough, chills, cp, db, neck pn, back pn, abd pn. Left Lower Leg Pain Score (Numeric/FACES): 6 - Related Data Allergies Allergy/AdvReac Type Severity Reaction Status Date / Time No Known Allergies Allergy Verified 08/06/21 17:31 Home Meds: Home Meds Ondansetron [Zofran] 4 mg PO Q8HR PRN 03/06/17 [History] Acetaminophen [Tylenol] 650 mg PO Q6HR PRN 12/12/18 [History] hydroCHLOROthiazide [Hydrochlorothiazide] 25 mg PO DAILY 12/12/18 [History] Levothyroxine 112 mcg PO DAILY 07/18/19 [History] traMADol HCl [Tramadol HCl] 50 mg PO PRN 07/18/19 [History] Past Medical History HEENT History: Reports: Impaired Vision Cardiovascular History: Reports: Hypertension Respiratory History: Reports: None Gastrointestinal History: Reports: Other (See Below) Other Gastrointestinal History: liver hemangioma Genitourinary History: Reports: None 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: Musculoskeletal History: Reports: Back Pain, Chronic, Osteoarthritis, Other (See Below) Other Musculoskeletal History: fibromyalgia Neurological History: Reports: Other (See Below) Other Neuro History: herniated and bulging disc Psychiatric History: Reports: Addiction Endocrine/Metabolic History: Reports: None Hematologic History: Reports: None Immunologic History: Reports: None Oncologic (Cancer) History: Reports: None Dermatologic History: Reports: None - Infectious Disease History Infectious Disease History: Reports: Chicken Pox Other Infectious Disease History: hepatitis - Past Surgical History Head Surgeries/Procedures: Reports: None GI Surgical History: Reports: Appendectomy, Cholecystectomy, Hernia Repair/Other, Other (See Below) Female Surgical History: Reports: Hysterectomy, Tubal Ligation, Other (See Below) Other Female Surgeries/Procedures: bladder sling Social & Family History - Family History Family Medical History: No Pertinent Family History - Caffeine Use Caffeine Use: Reports: Coffee - Living Situation & Occupation Living situation: Reports: , with Family Review of Systems - Review of Systems Review Of Systems: Comprehensive ROS is negative, except as noted in HPI. ED EXAM, GENERAL - Physical Exam Exam: See Below Exam Limited By: No Limitations General Appearance: Alert, No Apparent Distress Nose: Normal Inspection, Normal Mucosa, No Blood Throat/Mouth: Normal Inspection, Normal Lips, Normal Teeth, Normal Gums, Normal Oropharynx, Normal Voice, No Airway Compromise Head: Atraumatic, Normocephalic Neck: Normal Inspection, Supple, Non-Tender, Full Range of Motion Respiratory/Chest: No Respiratory Distress, Lungs Clear, Normal Breath Sounds, No Accessory Muscle Use, Chest Non-Tender Cardiovascular: Normal Peripheral Pulses, Regular Rate, Rhythm, No Edema, No Gallop, No JVD, No Murmur, No Rub Peripheral Pulses: 2+: Radial (L), Radial (R) GI/Abdominal: Soft, Non-Tender, No Organomegaly, No Mass, Pelvis Stable (Female) Exam: Deferred Rectal (Female) Exam: Deferred Back Exam: Normal Inspection, Full Range of Motion, Other (tenderness over L SI joint) Extremities: Other (L leg weaker than R with abduction and adduction flexion and extension. L arm weaker than R with bicep extension.) Neurological: Alert, Oriented, CN II-XII Intact, Normal Cognition, Normal Gait, Normal Reflexes, No Motor/Sensory Deficits Psychiatric: Normal Affect, Normal Mood Skin Exam: Warm, Dry, Intact #1 Interpretation EKG Date: 08/06/21 Time: 17:46 Rhythm: Other (sinus lindsey) [place]: Normal P-Wave: Present QRS: Normal ST-T: Normal QT: Normal Course - Vital Signs Last Recorded V/S: Last Vital Signs Temp 98.6 F 08/06/21 17:27 Pulse 57 L 08/06/21 17:27 Resp 16 08/06/21 17:27 BP 112/97 H 08/06/21 17:27 Pulse Ox 99 08/06/21 17:27 - Orders/Labs/Meds Labs: Laboratory Tests 08/06/21 08/06/21 Range/Units 17:50 17:50 WBC 7.7 (5.0-10.0) 10^3/uL RBC 4.27 (4.2-5.4) 10^6/uL Hgb 12.5 (12.0-16.0) g/dL Hct 37.7 (37.0-47.0) % MCV 88.3 (80-100) fL MCH 29.3 (27.0-34.0) pg MCHC 33.2 (33.0-35.0) g/dL Plt Count 202 (150-450) 10^3/uL Neut % (Auto) 32.9 L (42.2-75.2) % Lymph % (Auto) 52.8 H (20.5-50.1) % [place] % (Auto) 9.0 H (2-8) % Eos % (Auto) 5.0 H (1.0-3.0) % Baso % (Auto) 0.3 (0.0-1.0) % Sodium 142 (136-145) mmol/L Potassium 4.5 (3.5-5.1) mmol/L Chloride 104 (98-107) mmol/L Carbon Dioxide 30 (21-32) mmol/L Anion Gap 12.5 (7-13) mEq/L BUN 23 H (7-18) mg/dL Creatinine 1.00 (0.55-1.02) mg/dL Est Cr Clr Drug Dosing 55.06 mL/min Estimated GFR (MDRD) 58 BUN/Creatinine Ratio 23.0 (No establ ref range) Glucose 95 (70-99) mg/dL Calcium 9.2 (8.5-10.1) mg/dL Magnesium 2.0 (1.8-2.4) mg/dL Total Bilirubin 0.4 (0.2-1.0) mg/dL AST 19 (15-37) U/L ALT 27 (14-59) U/L Alkaline Phosphatase 60 (46-116) U/L Troponin I High Sens 16 (<=51) pg/mL Total Protein 7.7 (6.4-8.2) g/dL Albumin 3.8 (3.4-5.0) g/dL Globulin 3.9 Albumin/Globulin Ratio 1.0 TSH, Ultra Sensitive 3.60 (0.36-3.74) uIU/mL Meds: Medications Discontinued Medications Generic Name Dose Route Start Last Admin Trade Name Alda PRN Reason Stop Dose Admin Methylprednisolone Sodium Succinate 125 mg 08/06/21 18:38 08/06/21 18:58 Methylprednisolone Sodium Succinate 125 Mg/2 Ml Sdv IM 08/06/21 18:39 Not Given ONETIME ONE - Re-Assessments/Exams Free Text/Narrative Re-Assessment/Exam: 08/06/21 18:36 I discussed the lab and exam, ekg and xray results with the pt. There is no evidence of cardiac problems at this time. A cause of her arm pain cannot be determined. I give the pt a steriod shot for her sciatica and discharge her home to follow up with her pcp if her scaitica persists. Departure - Departure Time of Disposition: 18:39 Disposition: Home, Self-Care 01 Condition: Fair Clinical Impression: Sciatica Qualifiers: Laterality: left Qualified Code(s): M54.32 - Sciatica, left side - Discharge Information *PRESCRIPTION DRUG MONITORING PROGRAM REVIEWED*: Not Applicable *COPY OF PRESCRIPTION DRUG MONITORING REPORT IN PATIENT DIANA: Not Applicable Instructions: Sciatica Forms: ED Department Discharge Additional Instructions: RX: Prednisone Use Tylenol and ibuprofen for pain. Continue the stretches that were shown to you here at your visit. If symptoms do not improve by next week follow up with your primary care facility. If any new symptoms or concerns develop contact your primary care facility ore return to the ER. Sepsis Event Note (ED) - Evaluation Sepsis Screening Result: No Definite Risk - Focused Exam Vital Signs: Vital Signs Temp Pulse Resp BP Pulse Ox 08/06/21 17:27 98.6 F 57 L 16 112/97 H 99
[2021-08-06 18:27] LABS: ANION GAP 12.5 mEq/L (7-13)
[2021-08-06] MEDS ORDERED: methylPREDNISolone Sodium Succinate 125 MG/2 ML SDV IM ONE (18:38)
--- NOTE | 2021-08-06 18:38 | CR ---
PROCEDURE INFORMATION: Exam: XR Chest Exam date and time: 08/06/2021 6:13 PM Age: 51 years old Clinical indication: Other: Chest/back pain; Additional info: Cardiac rule out TECHNIQUE: Imaging protocol: XR of the chest. Views: 1 view. COMPARISON: CR Chest 1V Frontal 07/18/2019 3:57 PM FINDINGS: Lungs: Unremarkable. No consolidation. Pleural spaces: Unremarkable. No pleural effusion. No pneumothorax. Heart/Mediastinum: Unremarkable. No cardiomegaly. Bones/joints: Unremarkable. IMPRESSION: No acute findings.
== END 2021-08-06 18:59 | disposition home or self-care (01) ==
LOC: DL.ED 15:59
DX: M54.32 Sciatica, left side (principal); I10 Essential (primary) hypertension; Z79.899 Other long term (current) drug therapy
CPT/HCPCS: 36415; 71045; 80053; 83735; 84443; 84484; 85025; 93005; 99284-25

== ENCOUNTER 2022-08-26 21:19 | Emergency (ER) | payer MEDICAID ==
[2022-08-26 21:46] VITALS: BP 151/83; PULSE 70
[2022-08-26 22:18] LABS: ANION GAP 10.9 mEq/L (7-13); CHLORIDE,CL 104 mmol/L (98-107); SODIUM,NA 141 mmol/L (136-145)
[2022-08-26 22:24] LABS: ESTIMATED GFR 53 mL/min (>=60)
== END 2022-08-26 22:39 | disposition home or self-care (01) ==
LOC: DL.ED 21:19
DX: M79.641 Pain in right hand (principal); T50.905A Adverse effect of unspecified drugs, medicaments and biological substances, initial encounter; I10 Essential (primary) hypertension; E03.9 Hypothyroidism, unspecified; Z79.899 Other long term (current) drug therapy
CPT/HCPCS: 36415; 80053; 85025; 85379; 86140; 99283

== ENCOUNTER 2023-06-07 18:20 | Emergency (ER) | payer BC, MEDICAID ==
[2023-06-07] MEDS ORDERED: Sodium Chloride 0.9% 10 ML Syringe FLUSH PRN (18:39)
[2023-06-07 18:40] VITALS: BP 130/86; PULSE 60
[2023-06-07 19:03] LABS: BASOPHILS PERCENT AUTO 0.7 % (0.0-1.0); EOSINOPHILS PERCENT AUTO 3.8 % (1.0-3.0); HEMATOCRIT 39.7 % (37.0-47.0); HEMOGLOBIN 12.8 g/dL (12.0-16.0); LYMPHOCYTES PERCENT AUTO 51.1 % (20.5-50.1); MEAN CORPUSCULAR HEMOGLOBIN 28.8 pg (27.0-34.0); MEAN CORPUSCULAR HGB CONC 32.2 g/dL (33.0-35.0); MEAN CORPUSCULAR VOLUME 89.2 fL (80-100); MONOCYTES PERCENT AUTO 11.3 % (2-8); NEUTROPHILS PERCENT AUTO 33.1 % (42.2-75.2); PLATELET COUNT,PLT 185 10^3/uL (150-450); RED BLOOD CELL COUNT 4.45 10^6/uL (4.2-5.4); WHITE BLOOD CELL COUNT,WBC 5.5 10^3/uL (5.0-10.0)
[2023-06-07 19:11] LABS: APPEARANCE,URINE CLEAR (CLEAR); BILIRUBIN,URINE NEGATIVE (NEGATIVE); COLOR,URINE YELLOW (YELLOW); GLUCOSE,URINE NEGATIVE (NEGATIVE); KETONES,URINE NEGATIVE (NEGATIVE); LEUKOCYTE ESTERASE,URINE NEGATIVE (NEGATIVE); NITRITE,URINE NEGATIVE (NEGATIVE); OCCULT BLOOD,URINE SMALL (NEGATIVE); PH,URINE 6.5 (5.0-9.0); PROTEIN,URINE NEGATIVE (NEGATIVE); UROBILINOGEN,URINE 0.2 mg/dL (0.2-1.0)
[2023-06-07 19:25] LABS: A/G RATIO 0.9; ALANINE AMINOTRANSFERASE,ALT 32 U/L (14-59); ALBUMIN 3.4 g/dL (3.4-5.0); ALKALINE PHOSPHATASE 74 U/L (46-116); ANION GAP 7.3 mEq/L (7-13); ASPARTATE AMNIOTRANSFERASE,AST 16 U/L (15-37); BILIRUBIN TOTAL 0.4 mg/dL (0.2-1.0); BLOOD UREA NITROGEN,BUN 12 mg/dL (7-18); BUN/CREATININE RATIO 11.9 (No establ ref range); C-REACTIVE PROTEIN 0.12 ng/dL (<=0.30); CALCIUM 8.7 mg/dL (8.5-10.1); CARBON DIOXIDE,CO2 31 mmol/L (21-32); CHLORIDE,CL 105 mmol/L (98-107); CREATININE 1.01 mg/dL (0.55-1.02); EST CRCL DRUG DOSING (CG) 64.98 mL/min; ESTIMATED GFR 67 mL/min (>=60); GLUCOSE RANDOM 82 mg/dL (70-99); POTASSIUM,K 3.3 mmol/L (3.5-5.1); PROTEIN TOTAL,TP 7.2 g/dL (6.4-8.2); SODIUM,NA 140 mmol/L (136-145)
[2023-06-07 19:27] LABS: LACTIC ACID 0.3 mmol/L (0.4-2.0); PROTHROMBIN TIME 9.9 SEC (9.0-12.0); PTT,PARTIAL THROMBOPLSTIN TIME 27.4 SEC (22.0-34.0)
[2023-06-07] MEDS ORDERED: Orphenadrine 60 MG/2 ML Inj IM ONE (19:38)
[2023-06-07] MEDS ORDERED: Take Home: Acetaminophen/HYDROcodone 325-5 MG, 5 Tab Pack PO ONE (19:46)
[2023-06-07 19:49] LABS: BACTERIA,URINE MODERATE /HPF (0-FEW/HPF); EPITHELIAL CELLS,URINE MODERATE /HPF (NOT SEEN); MUCUS,URINE FEW /LPF (NOT SEEN)
== END 2023-06-07 20:05 | disposition home or self-care (01) ==
LOC: DL.ED 18:20
DX: M54.50 Low back pain, unspecified (principal); I10 Essential (primary) hypertension; E05.90 Thyrotoxicosis, unspecified without thyrotoxic crisis or storm; Z79.899 Other long term (current) drug therapy
CPT/HCPCS: 36415; 80053; 81001; 81025; 83605; 84145; 85025; 85610; 85730; 86140; 99283; 99284; A9270-GY; J2360; J3490

== ENCOUNTER 2024-04-02 11:53 | Emergency (ER) | payer BC ==
[2024-04-02 12:44] VITALS: BP 111/84; PULSE 60
[2024-04-02] MEDS: predniSONE 20 MG Tab PO ONE (13:34)
[2024-04-02] MEDS: diphenhydrAMINE 25 MG Tab PO ONE (13:34)
== END 2024-04-02 13:56 | disposition home or self-care (01) ==
LOC: DL.ED 11:53
DX: T63.441A Toxic effect of venom of bees, accidental (unintentional), initial encounter (principal); I10 Essential (primary) hypertension; Z90.49 Acquired absence of other specified parts of digestive tract; Z90.710 Acquired absence of both cervix and uterus; Z79.899 Other long term (current) drug therapy
CPT/HCPCS: 99283; A9270-GY; J7512

== ENCOUNTER 2024-06-23 11:41 | Emergency (ER) | payer SELFPAY ==
[2024-06-23] MEDS ORDERED: Sodium Chloride 0.9% 10 ML Syringe FLUSH PRN (12:03)
[2024-06-23 12:19] LABS: EOSINOPHILS PERCENT AUTO 4.9 % (1.0-3.0); HEMATOCRIT 38.5 % (37.0-47.0); HEMOGLOBIN 12.7 g/dL (12.0-16.0); LYMPHOCYTES PERCENT AUTO 27.7 % (20.5-50.1); MEAN CORPUSCULAR HEMOGLOBIN 28.3 pg (27.0-34.0); MEAN CORPUSCULAR VOLUME 85.9 fL (80-100); MONOCYTES PERCENT AUTO 12.9 % (2-8); NEUTROPHILS PERCENT AUTO 53.5 % (42.2-75.2); PLATELET COUNT,PLT 170 10^3/uL (150-450); RED BLOOD CELL COUNT 4.48 10^6/uL (4.2-5.4); WHITE BLOOD CELL COUNT,WBC 4.9 10^3/uL (5.0-10.0)
[2024-06-23 12:36] LABS: INR 2.6 (0.9-1.2); PROTHROMBIN TIME 25.5 SEC (9.0-12.0)
[2024-06-23 12:42] LABS: A/G RATIO 1.1; ALANINE AMINOTRANSFERASE,ALT 24 U/L (14-59); ALBUMIN 3.7 g/dL (3.4-5.0); ALKALINE PHOSPHATASE 67 U/L (46-116); ANION GAP 10.1 mEq/L (7-13); ASPARTATE AMNIOTRANSFERASE,AST 17 U/L (15-37); BILIRUBIN TOTAL 0.6 mg/dL (0.2-1.0); BLOOD UREA NITROGEN,BUN 15 mg/dL (7-18); BUN/CREATININE RATIO 13.6 (No establ ref range); CALCIUM 8.7 mg/dL (8.5-10.1); CARBON DIOXIDE,CO2 30 mmol/L (21-32); CHLORIDE,CL 105 mmol/L (98-107); EST CRCL DRUG DOSING (CG) 48.36 mL/min; GLUCOSE RANDOM 94 mg/dL (70-99); MAGNESIUM 1.9 mg/dL (1.8-2.4); POTASSIUM,K 4.1 mmol/L (3.5-5.1); PROTEIN TOTAL,TP 7.2 g/dL (6.4-8.2); SODIUM,NA 141 mmol/L (136-145)
[2024-06-23 12:43] LABS: C-REACTIVE PROTEIN < 0.50 ng/dL (<=0.50); ESTIMATED GFR 60 mL/min (>=60)
[2024-06-23] MEDS: Bacitracin Oint 1 GM U/D Packet TOP ONE (13:02)
[2024-06-23] MEDS: Iopamidol 755 Mg/ML 100 ML Bottle IVPUSH ONE (13:12)
[2024-06-23 13:42] VITALS: BP 140/80; PULSE 66
== END 2024-06-23 14:11 | disposition home or self-care (01) ==
LOC: DL.ED 11:41
DX: K52.9 Noninfective gastroenteritis and colitis, unspecified (principal); I10 Essential (primary) hypertension; Z90.49 Acquired absence of other specified parts of digestive tract; Z90.710 Acquired absence of both cervix and uterus; Z79.890 Hormone replacement therapy; Z79.899 Other long term (current) drug therapy
CPT/HCPCS: 36415; 71275; 80053; 83735; 84484; 85025; 85610; 86140; 87428; 93005; Q9967; 93010; 99284; 99285